=== PATIENT | female | born 1960 | race Caucasian/White ===

== ENCOUNTER 2023-06-12 08:18 | Day surgery (SDC) | payer BC ==
[2023-06-11 11:18] VITALS: BMI 28.1
[~2023-06-12 08:18] MED LIST: EPINEPHrine 0.3 MG in Ophthalmic Irrigation Solution 500 ML IRR SCH
[2023-06-12] MEDS ORDERED: Cyclopentolate W/ Phenylephrin 5 ML BOT ONE (09:20)
[2023-06-12] MEDS ORDERED: Midazolam HCl 2 mg/2 ml Vial ONE (09:59)
[2023-06-12] MEDS ORDERED: fentaNYL 50 mcg/mL 1 mL Vial ONE (09:59)
[2023-06-12] MEDS ORDERED: PROPOFOL 20 ML ONE (09:59)
[2023-06-12] MEDS ORDERED: CEFAZOLIN 1 GM VIAL ONE (10:42)
[2023-06-12] MEDS ORDERED: Maxitrol 0.1% Opth Oint 3.5 GM TUBE ONE (10:42)
[2023-06-12] MEDS ORDERED: Lidocaine 4% PF 5 ML AMP ONE (10:42)
[2023-06-12] MEDS ORDERED: Lidocaine 1% PF 5 ML VIAL ONE (10:42)
[2023-06-12] MEDS ORDERED: Triamcinolone 40 MG/ML VIAL ONE (10:42)
[2023-06-12] MEDS ORDERED: Bupivacaine 0.75% 10 ML VIAL ONE (10:42)
== END 2023-06-12 11:50 | disposition home or self-care (01) ==
LOC: SDC 08:18
PROVIDERS: ATTEND Ophthalmology Retina Specialist
PROC: 08T43ZZ Resection of Right Vitreous, Percutaneous Approach (ICD-10-PCS; principal; 2023-06-12)
DX: H33.021 Retinal detachment with multiple breaks, right eye (principal)
CPT/HCPCS: 67025; J0171; J0690; J2250; J2704; J3010; J3301; J3490